=== PATIENT | female | born 1970 | race Caucasian/White ===

== ENCOUNTER → 2017-09-21 | Outpatient (CLI) | payer OTHER ==
[2017-09-21 14:06] LABS: BASOPHILS % (AUTO) 1.1 % (0.0-2.0); EOSINOPHILS % (AUTO) 0.6 % (1.0-6.0); HEMATOCRIT 27.7 % (36-46); HEMOGLOBIN 8.4 g/dL (12.0-16.0); LYMPHOCYTES # (AUTO) 1.5 K/uL (1.0-4.8); LYMPHOCYTES % (AUTO) 32.5 % (22.0-44.0); MEAN CORPUSCULAR HEMOGLOBIN 20.1 pg (26.0-34.0); MEAN CORPUSCULAR HGB CONC 30.3 G/dL (31.0-37.0); MEAN CORPUSCULAR VOLUME 66 fL (80-100); MONOCYTES # (AUTO) 0.3 K/uL (0.1-1.0); MONOCYTES % (AUTO) 7.3 % (2.0-9.0); NEUTROPHILS # (AUTO) 2.7 K/uL (1.8-7.7); NEUTROPHILS % (AUTO) 58.5 % (40.0-70.0); PLATELET COUNT (AUTO) 531 K/uL (150-450); RED BLOOD CELL COUNT(AUTO) 4.19 MIL/uL (4.00-5.20); RED CELL DISTRIBUTION WIDTH 17.1 % (11.5-14.5)
[2017-09-21 14:20] LABS: HEMOGLOBIN A1C 5.2 % (4.5-6.2)
[2017-09-21 14:24] LABS: % IRON SATURATION 2.3 % (22-44); IRON, SERUM 13 mcg/dL (50-175); TOTAL IRON BINDING CAPACITY 551 mcg/dL (250-450)
[2017-09-21 14:38] LABS: ALANINE AMINOTRANSFERASE 20 U/L (12-78); ALKALINE PHOSPHATASE 45 U/L (46-116); ANION GAP 11 mmol/L (8-16); ASPARTATE AMINOTRANSFERASE 27 U/L (15-37); BILIRUBIN,TOTAL 0.2 mg/dL (0.1-1.0); CALCIUM, TOTAL 8.8 mg/dL (8.8-10.5); CARBON DIOXIDE 25 mmol/L (22-29); CHLORIDE 105 mmol/L (98-107); CHOL/HDL RATIO 2.9 (3.9-5.7); CHOLESTEROL 216 mg/dL (131-200); CREATININE 0.55 mg/dL (0.60-1.30); FERRITIN 3 ng/mL (8-252); GLOMERULAR FILTR. RATE CALC > 60 mL/min (>60); GLUCOSE,RANDOM 88 mg/dL (70-110); HDL CHOLESTEROL 74 mg/dL (40-60); LDL CHOL (CALC.) 125 mg/dL (0-130); POTASSIUM 4.3 mmol/L (3.5-5.1); SODIUM SERUM 141 mmol/L (136-145); THYROID STIMULATING HORMONE 1.91 uIU/mL (0.36-3.74); TRIGLYCERIDES 83 mg/dL (15-150); UREA NITROGEN, BLOOD 7 mg/dL (7-18)
== END | disposition home or self-care (01) ==
LOC: LABPV 10:11
PROVIDERS: ATTEND Internal Medicine
DX: D64.9 Anemia, unspecified (principal); E55.9 Vitamin D deficiency, unspecified; Z79.899 Other long term (current) drug therapy
CPT/HCPCS: 82306; 82728; 83036; 83540; 83550; 84443

== ENCOUNTER → 2018-08-22 | Outpatient (CLI) | payer OTHER ==
[2018-08-22 13:07] LABS: BASOPHILS % (AUTO) 1.6 % (0.0-2.0); EOSINOPHILS % (AUTO) 1.2 % (1.0-6.0); HEMOGLOBIN 8.2 g/dL (12.0-16.0); LYMPHOCYTES # (AUTO) 1.7 K/uL (1.0-4.8); MEAN CORPUSCULAR HGB CONC 29.4 G/dL (31.0-37.0); MEAN CORPUSCULAR VOLUME 65 fL (80-100); MONOCYTES # (AUTO) 0.3 K/uL (0.1-1.0); MONOCYTES % (AUTO) 6.7 % (2.0-9.0); NEUTROPHILS # (AUTO) 2.8 K/uL (1.8-7.7); NEUTROPHILS % (AUTO) 55.5 % (40.0-70.0); PLATELET COUNT (AUTO) 497 K/uL (150-450); RED BLOOD CELL COUNT(AUTO) 4.33 MIL/uL (4.00-5.20); RED CELL DISTRIBUTION WIDTH 17.6 % (11.5-14.5)
[2018-08-22 13:09] LABS: HEMATOCRIT 26.8 % (36-46)
[2018-08-22 13:34] LABS: ERYTHROCYTE SEDIMENTATION RATE 12 MM/HR (0-20)
[2018-08-22 16:12] LABS: ALANINE AMINOTRANSFERASE 28 U/L (12-78); ALBUMIN 3.9 g/dL (3.4-5.0); ALKALINE PHOSPHATASE 46 U/L (46-116); ANION GAP 8 mmol/L (8-16); ASPARTATE AMINOTRANSFERASE 23 U/L (15-37); BILIRUBIN,TOTAL 0.2 mg/dL (0.1-1.0); C-REACTIVE PROTEIN QUANT 0.06 mg/dL (0.00-0.30); CALCIUM, TOTAL 8.8 mg/dL (8.8-10.5); CARBON DIOXIDE 26 mmol/L (22-29); CHLORIDE 105 mmol/L (98-107); CHOLESTEROL 236 mg/dL (131-200); CREATININE 0.59 mg/dL (0.60-1.30); FERRITIN 2 ng/mL (8-252); FREE T4 (FREE THYROXINE) 0.81 ng/dL (0.76-1.46); GLOMERULAR FILTR. RATE CALC > 60 mL/min (>60); GLUCOSE,RANDOM 89 mg/dL (70-110); HDL CHOLESTEROL 78 mg/dL (40-60); LDL CHOL (CALC.) 143 mg/dL (0-130); SODIUM SERUM 139 mmol/L (136-145); THYROID STIMULATING HORMONE 2.27 uIU/mL (0.36-3.74); TOTAL PROTEIN, SERUM 7.8 g/dL (6.4-8.2); TRIGLYCERIDES 73 mg/dL (15-150); UREA NITROGEN, BLOOD 7 mg/dL (7-18)
[2018-08-22 16:31] LABS: % IRON SATURATION 1.8 % (22-44); IRON, SERUM 11 mcg/dL (50-175); TOTAL IRON BINDING CAPACITY 580 mcg/dL (250-450)
== END | disposition home or self-care (01) ==
LOC: MSR 12:32
PROVIDERS: ATTEND Internal Medicine
DX: M25.542 Pain in joints of left hand (principal); N91.5 Oligomenorrhea, unspecified
CPT/HCPCS: 82728; 83540; 83550; 84439; 84443; 85651; 86038; 86140; 86162; 86200; 86225; 86430

== ENCOUNTER → 2018-09-04 | Outpatient (CLI) | payer OTHER ==
[2018-09-04 14:16] LABS: APPEARANCE,URINE CLEAR (CLEAR); BILIRUBIN,URINE NEGATIVE (NEGATIVE); GLUCOSE, URINE (UA) NEGATIVE (NEGATIVE); KETONES,URINE NEGATIVE (NEGATIVE); LEUKOCYTE ESTERASE ,URINE TRACE (NEGATIVE); NITRATE,URINE NEGATIVE (NEGATIVE); OCCULT BLOOD,URINE NEGATIVE (NEGATIVE); PROTEIN,URINE NEGATIVE (NEGATIVE); UROBILINOGEN,URINE 0.2 mg/dL (<=1.0)
[2018-09-04 14:55] LABS: BACTERIA,URINE None Seen /HPF (None Seen); RBC,URINE None Seen /HPF (0-2); SQUAMOUS EPITHELIAL CELL,UR Few /LPF (None Seen); WBC,URINE 0-2 /HPF (0-5)
== END | disposition home or self-care (01) ==
LOC: RADPV 13:38
PROVIDERS: ATTEND Internal Medicine
DX: D25.9 Leiomyoma of uterus, unspecified (principal); M25.542 Pain in joints of left hand; D72.829 Elevated white blood cell count, unspecified
CPT/HCPCS: 76830; 76856

== ENCOUNTER 2019-01-25 06:51 | Day surgery (SDC) | payer OTHER ==
[2019-01-24 09:17] LABS: BASOPHILS % (AUTO) 1.2 % (0.0-2.0); EOSINOPHILS % (AUTO) 1.1 % (1.0-6.0); HEMATOCRIT 36.1 % (36-46); HEMOGLOBIN 11.6 g/dL (12.0-16.0); LYMPHOCYTES # (AUTO) 1.6 K/uL (1.0-4.8); LYMPHOCYTES % (AUTO) 35.9 % (22.0-44.0); MEAN CORPUSCULAR HEMOGLOBIN 30.3 pg (26.0-34.0); MEAN CORPUSCULAR HGB CONC 32.1 G/dL (31.0-37.0); MEAN CORPUSCULAR VOLUME 94 fL (80-100); MONOCYTES # (AUTO) 0.4 K/uL (0.1-1.0); MONOCYTES % (AUTO) 8.1 % (2.0-9.0); NEUTROPHILS # (AUTO) 2.5 K/uL (1.8-7.7); NEUTROPHILS % (AUTO) 53.7 % (40.0-70.0); PLATELET COUNT (AUTO) 416 K/uL (150-450); RED BLOOD CELL COUNT(AUTO) 3.83 MIL/uL (4.00-5.20); RED CELL DISTRIBUTION WIDTH 12.6 % (11.5-14.5)
[2019-01-24 09:37] LABS: APPEARANCE,URINE CLEAR (CLEAR); BILIRUBIN,URINE NEGATIVE (NEGATIVE); GLUCOSE, URINE (UA) NEGATIVE (NEGATIVE); KETONES,URINE NEGATIVE (NEGATIVE); LEUKOCYTE ESTERASE ,URINE NEGATIVE (NEGATIVE); NITRATE,URINE NEGATIVE (NEGATIVE); OCCULT BLOOD,URINE NEGATIVE (NEGATIVE); PROTEIN,URINE NEGATIVE (NEGATIVE); UROBILINOGEN,URINE 0.2 mg/dL (<=1.0)
[2019-01-24 10:56] LABS: ALBUMIN 3.7 g/dL (3.4-5.0); BILIRUBIN,TOTAL 0.3 mg/dL (0.1-1.0); CALCIUM, TOTAL 9.4 mg/dL (8.8-10.5); POTASSIUM 3.8 mmol/L (3.5-5.1); TOTAL PROTEIN, SERUM 7.5 g/dL (6.4-8.2)
[~2019-01-25] VITALS: Ht 160 cm; Wt 57.3 kg
[~2019-01-25 06:51] MED LIST: IRON-24 PO; RINGERS SOLUTION,LACTATED 1,000 ML IV ONE
[2019-01-25] MEDS ORDERED: MIDAZOLAM HCL 2 MG/2 ML VIAL IVP ONE (06:52)
[2019-01-25] MEDS ORDERED: LIDOCAINE/PF 2% 5 ML VIAL IM ONE (06:52)
[2019-01-25] MEDS ORDERED: PROPOFOL 1% 20 ML VIAL IVP ONE (06:52)
[2019-01-25] MEDS ORDERED: ONDANSETRON HCL 4 MG/2 ML VIAL IVP ONE (06:52)
[2019-01-25] MEDS ORDERED: FentaNYL CITRATE-PF 100 MCG/2 ML VIAL IVP ONE (06:52)
[2019-01-25] MEDS: RINGERS SOLUTION,LACTATED 1,000 ML IV ONE (07:51)
[2019-01-25] MEDS ORDERED: SODIUM CL IRRIG SOLN BAG 6,000 ML IRRIG ONE ×3 (08:29→10:02)
[2019-01-25] MEDS ORDERED: ONDANSETRON HCL 4 MG/2 ML VIAL IVP PRN (09:45)
[2019-01-25] MEDS ORDERED: HYDROmorphone 2 MG/ML SYRINGE IVP PRN ×2 (09:45)
[2019-01-25] MEDS ORDERED: MEPERIDINE-PF 25 MG/ML VIAL ONE (10:49)
[2019-01-25] MEDS: TRANEXAMIC ACID 1,000 MG in DEXTROSE 5%-WATER 50 ML IV ONE (10:49)
[2019-01-25] MEDS ORDERED: ACETAMINOPHEN 1000 MG/ISO-OSM 100 ML IV ONE (10:50)
[2019-01-25] MEDS: MEPERIDINE-PF 25 MG/ML VIAL IVP PRN (10:53)
[2019-01-25] MEDS: ACETAMINOPHEN 1000 MG/ISO-OSM 100 ML IV ONE (10:54)
[2019-01-25] MEDS: IBUPROFEN 600 MG TABLET PO ONE (12:41)
== END 2019-01-25 13:00 | disposition home or self-care (01) ==
LOC: SURGERY 06:51
PROVIDERS: ATTEND Obstetrics & Gynecology
DX: D25.0 Submucous leiomyoma of uterus (principal); N84.0 Polyp of corpus uteri; D64.9 Anemia, unspecified; Z98.890 Other specified postprocedural states
CPT/HCPCS: 36415; 58561; 80053; 81003; 84703; 85025; 88305; 88342; J0131; J2175; J2250; J2405; J2704; J3010; J3490 ×2; J7060; J7120; 88321; 88341

== ENCOUNTER 2019-05-10 07:30 | Inpatient (IN) | payer OTHER ==
[~2019-05-10] VITALS: Ht 162.6 cm; Wt 56.8 kg
[~2019-05-10 07:30] MED LIST changes: -RINGERS SOLUTION,LACTATED 1,000 ML IV ONE
[2019-05-13] MEDS ORDERED: BUPIVACAINE LIPOSOME/PF 1.3%-13.3MG/ML SUSPENSION 20 ML VIAL INJ ONE (09:45)
[2019-05-14] MEDS ORDERED: RINGERS SOLUTION,LACTATED 1,000 ML IV ONE ×4 (08:23→13:15)
[2019-05-14] MEDS ORDERED: BUPIVACAINE LIPOSOME/PF 1.3%-13.3MG/ML SUSPENSION 20 ML VIAL INJ ONE (09:00)
[2019-05-14 09:51] LABS: BASOPHILS % (AUTO) 1.2 % (0.0-2.0); EOSINOPHILS % (AUTO) 0.5 % (1.0-6.0); HEMATOCRIT 35.6 % (36-46); HEMOGLOBIN 11.1 g/dL (12.0-16.0); LYMPHOCYTES # (AUTO) 1.7 K/uL (1.0-4.8); LYMPHOCYTES % (AUTO) 27.7 % (22.0-44.0); MEAN CORPUSCULAR HEMOGLOBIN 25.5 pg (26.0-34.0); MEAN CORPUSCULAR HGB CONC 31.3 G/dL (31.0-37.0); MEAN CORPUSCULAR VOLUME 82 fL (80-100); MONOCYTES # (AUTO) 0.4 K/uL (0.1-1.0); MONOCYTES % (AUTO) 6.5 % (2.0-9.0); NEUTROPHILS % (AUTO) 64.1 % (40.0-70.0); PLATELET COUNT (AUTO) 487 K/uL (150-450); RED BLOOD CELL COUNT(AUTO) 4.37 MIL/uL (4.00-5.20); RED CELL DISTRIBUTION WIDTH 15.1 % (11.5-14.5)
[2019-05-14 09:59] LABS: ANION GAP 9 mmol/L (8-16); CALCIUM, TOTAL 8.5 mg/dL (8.8-10.5); CARBON DIOXIDE 27 mmol/L (22-29); CHLORIDE 104 mmol/L (98-107); CREATININE 0.73 mg/dL (0.60-1.30); GLOMERULAR FILTR. RATE CALC > 60 mL/min (>60); GLUCOSE,RANDOM 84 mg/dL (70-110); POTASSIUM 3.7 mmol/L (3.5-5.1); SODIUM SERUM 140 mmol/L (136-145); UREA NITROGEN, BLOOD 7 mg/dL (7-18)
[2019-05-14] MEDS ORDERED: TRANEXAMIC ACID 1,000 MG in DEXTROSE 5%-WATER 50 ML IV ONE (10:00)
[2019-05-14 10:05] LABS: ALANINE AMINOTRANSFERASE 17 U/L (12-78); ALKALINE PHOSPHATASE 53 U/L (46-116); ASPARTATE AMINOTRANSFERASE 26 U/L (15-37); BILIRUBIN,TOTAL 0.4 mg/dL (0.1-1.0); TOTAL PROTEIN, SERUM 8.1 g/dL (6.4-8.2)
[2019-05-14] MEDS ORDERED: BUPIVACAINE HCL/PF 0.25% 30 ML VIAL ONE (10:23)
[2019-05-14] MEDS ORDERED: SODIUM CL IRRIG SOLN BAG 3,000 ML IRRIG ONE (10:24)
[2019-05-14 10:36] LABS: APPEARANCE,URINE CLEAR (CLEAR); BILIRUBIN,URINE NEGATIVE (NEGATIVE); GLUCOSE, URINE (UA) NEGATIVE (NEGATIVE); KETONES,URINE 15 mg/dL (NEGATIVE); LEUKOCYTE ESTERASE ,URINE NEGATIVE (NEGATIVE); NITRATE,URINE NEGATIVE (NEGATIVE); OCCULT BLOOD,URINE NEGATIVE (NEGATIVE); PH,URINE 6.5 (5.0-8.0); PROTEIN,URINE NEGATIVE (NEGATIVE); UROBILINOGEN,URINE 0.2 mg/dL (<=1.0)
[2019-05-14] MEDS ORDERED: CefoTEtan DISOD 2 GM/DEXTROSE 50 ML IV ONE (11:16)
[2019-05-14] MEDS ORDERED: FentaNYL CITRATE-PF 100 MCG/2 ML VIAL IVP ONE (12:00)
[2019-05-14] MEDS ORDERED: LIDOCAINE/PF 2% 5 ML VIAL INJ ONE (12:00)
[2019-05-14] MEDS ORDERED: HYDROmorphone 2 MG/ML SYRINGE IVP ONE (12:00)
[2019-05-14] MEDS ORDERED: MIDAZOLAM HCL 2 MG/2 ML VIAL IVP ONE (12:00)
[2019-05-14] MEDS ORDERED: ROCURONIUM BROMIDE 10 MG/ML 5 ML VIAL IVP ONE (12:00)
[2019-05-14] MEDS ORDERED: DEXAMETHASONE SOD PHOS 4 MG/ML VIAL IVP ONE (12:00)
[2019-05-14] MEDS ORDERED: GLYCOPYRROLATE 0.2 MG/ML VIAL IM ONE (12:00)
[2019-05-14] MEDS ORDERED: ONDANSETRON HCL 4 MG/2 ML VIAL IVP ONE (12:00)
[2019-05-14] MEDS ORDERED: BUPIVACAINE LIPOSOME/PF 1.3%-13.3MG/ML SUSPENSION 10 ML VIAL INJ ONE (12:15)
[2019-05-14] MEDS ORDERED: WATER FOR IRRIGATION,STERILE 3,000 ML IRRIG ONE (13:50)
[2019-05-14] MEDS ORDERED: METHYLENE BLUE 0.5% 10 ML AMPULE IVP ONE (15:15)
[2019-05-14] MEDS ORDERED: OxyCODONE HCL/ACETAMINOPHEN 5-325 MG TABLET PO PRN (16:15)
[2019-05-14] MEDS ORDERED: ACETAMINOPHEN 1000 MG/ISO-OSM 100 ML IV STA (16:36)
[2019-05-14 17:23] VITALS: BP 115/68
[2019-05-14] MEDS ORDERED: INFLUENZA VIRUS VACCINE QVS 2019-20 (3YR+)/PF 60 MCG/0.5 ML SYRINGE IM ONE (18:30)
[2019-05-14] MEDS: KETOROLAC TROMETHAMINE 15 MG/ML VIAL IVP SCH (18:47)
[2019-05-14 20:00] VITALS: BP 118/69
[2019-05-14] MEDS: OxyCODONE HCL/ACETAMINOPHEN 5-325 MG TABLET PO PRN (22:57)
[2019-05-14 23:00] VITALS: BP 117/72
[2019-05-14 23:53] VITALS: BP 113/68
[2019-05-15] MEDS: KETOROLAC TROMETHAMINE 15 MG/ML VIAL IVP SCH ×3 (00:40→11:45)
[2019-05-15] MEDS: RINGERS SOLUTION,LACTATED 1,000 ML IV SCH ×2 (02:35→11:45)
[2019-05-15 05:38] VITALS: BP 100/63
[2019-05-15 08:11] VITALS: BP 140/70
[2019-05-15] MEDS ORDERED: IBUP-2070 PO (12:30)
[2019-05-15] MEDS ORDERED: PERCT PO (12:30)
[2019-05-15] MEDS: OxyCODONE HCL/ACETAMINOPHEN 5-325 MG TABLET PO PRN (12:51)
== END 2019-05-15 14:00 | disposition home or self-care (01) | DRG 743 ==
LOC: 4S 05-14 09:13 → 4E 05-14 09:14
PROVIDERS: ADMIT Obstetrics & Gynecology; ATTEND Obstetrics & Gynecology
PROC: 0UT74ZZ Resection of Bilateral Fallopian Tubes, Percutaneous Endoscopic Approach (ICD-10-PCS; 2019-05-14)
PROC: 0UT94ZZ Resection of Uterus, Percutaneous Endoscopic Approach (ICD-10-PCS; principal; 2019-05-14 11:00)
DX: N85.02 Endometrial intraepithelial neoplasia [EIN] (principal); D25.9 Leiomyoma of uterus, unspecified; D50.0 Iron deficiency anemia secondary to blood loss (chronic); N92.1 Excessive and frequent menstruation with irregular cycle; Z28.21 Immunization not carried out because of patient refusal; Z80.41 Family history of malignant neoplasm of ovary; Z98.891 History of uterine scar from previous surgery
CPT/HCPCS: 87081; 88302; 88307; C9290; G0238; G0378; J0131; J1100; J1170; J1885; J2250; J2405; J3010; J3490; J7060; J7120

== ENCOUNTER → 2020-11-02 | Outpatient (CLI) | payer OTHER ==
[~2020-11-02] MED LIST changes: +IBUP-2070 PO; +PERCT PO
[2020-11-02 12:45] LABS: BASOPHILS % (AUTO) 0.8 % (0.0-2.0); EOSINOPHILS % (AUTO) 0.7 % (1.0-6.0); HEMATOCRIT 41.8 % (36-46); HEMOGLOBIN 13.7 g/dL (12.0-16.0); MEAN CORPUSCULAR HEMOGLOBIN 29.8 pg (26.0-34.0); MEAN CORPUSCULAR HGB CONC 32.7 G/dL (31.0-37.0); MEAN CORPUSCULAR VOLUME 91 fL (80-100); MONOCYTES # (AUTO) 0.3 K/uL (0.1-1.0); NEUTROPHILS # (AUTO) 2.7 K/uL (1.8-7.7); NEUTROPHILS % (AUTO) 52.5 % (40.0-70.0); PLATELET COUNT (AUTO) 394 K/uL (150-450); RED BLOOD CELL COUNT(AUTO) 4.59 MIL/uL (4.00-5.20); RED CELL DISTRIBUTION WIDTH 12.6 % (11.5-14.5)
[2020-11-02 13:20] LABS: ALANINE AMINOTRANSFERASE 20 U/L (12-78); ALBUMIN 4.1 g/dL (3.4-5.0); ALKALINE PHOSPHATASE 81 U/L (46-116); ANION GAP 10 mmol/L (8-16); ASPARTATE AMINOTRANSFERASE 19 U/L (15-37); BILIRUBIN,TOTAL 0.3 mg/dL (0.1-1.0); CALCIUM, TOTAL 9.5 mg/dL (8.8-10.5); CARBON DIOXIDE 28 mmol/L (22-29); CHLORIDE 102 mmol/L (98-107); CHOL/HDL RATIO 3.4 (3.9-5.7); CHOLESTEROL 232 mg/dL (131-200); CREATININE 0.76 mg/dL (0.60-1.30); GLOMERULAR FILTR. RATE CALC > 60 mL/min (>60); GLUCOSE,RANDOM 97 mg/dL (70-110); HDL CHOLESTEROL 69 mg/dL (40-60); LDL CHOL (CALC.) 147 mg/dL (0-130); POTASSIUM 4.2 mmol/L (3.5-5.1); SODIUM SERUM 140 mmol/L (136-145); TOTAL PROTEIN, SERUM 7.6 g/dL (6.4-8.2); TRIGLYCERIDES 80 mg/dL (15-150); UREA NITROGEN, BLOOD 11 mg/dL (7-18)
== END | disposition home or self-care (01) ==
LOC: LABPV 11:19
PROVIDERS: ATTEND Internal Medicine
DX: E78.00 Pure hypercholesterolemia, unspecified (principal); D64.9 Anemia, unspecified
CPT/HCPCS: 80053; 80061; 85025

== ENCOUNTER → 2020-12-09 | Outpatient (CLI) | payer OTHER | END | disposition home or self-care (01) | LOC: RADMN 09:10 | PROVIDERS: ATTEND Internal Medicine | DX: Z03.89 Encounter for observation for other suspected diseases and conditions ruled out (principal); Z90.710 Acquired absence of both cervix and uterus; Z80.41 Family history of malignant neoplasm of ovary | CPT/HCPCS: 76856 ==

== ENCOUNTER 2021-03-23 11:17 | Day surgery (SDC) | payer OTHER ==
[2021-03-22 11:40] LABS: COVID AG,FIA SOURCE NASOPHARYNGEAL
[~2021-03-23] VITALS: Ht 160 cm; Wt 56.8 kg
[~2021-03-23 11:17] MED LIST changes: +SODIUM CHLORIDE 0.9% 1,000 ML IV ONE; +SODIUM CHLORIDE 0.9% 1,000 ML ONE
[2021-03-23] MEDS ORDERED: LIDOCAINE/PF 2% 5 ML SYRINGE IVP ONE (11:18)
[2021-03-23] MEDS ORDERED: PROPOFOL 1% 20 ML VIAL IVP ONE (11:18)
[2021-03-23] MEDS ORDERED: OXYGEN THERAPY IH SCH (20:00)
== END 2021-03-23 14:40 | disposition home or self-care (01) ==
LOC: SURGERY 11:17
PROVIDERS: ATTEND Specialist
DX: Z12.11 Encounter for screening for malignant neoplasm of colon (principal); K63.5 Polyp of colon; I10 Essential (primary) hypertension; Z90.710 Acquired absence of both cervix and uterus; Z98.890 Other specified postprocedural states; Z79.899 Other long term (current) drug therapy
CPT/HCPCS: 45378; 87426; 88305; C1769; C9803; J2704; J3490; J7030

== ENCOUNTER → 2021-04-07 | Outpatient (CLI) | payer OTHER ==
[~2021-04-07] MED LIST changes: -SODIUM CHLORIDE 0.9% 1,000 ML IV ONE; -SODIUM CHLORIDE 0.9% 1,000 ML ONE
[2021-04-07 13:17] LABS: CHOL/HDL RATIO 2.9 (3.9-5.7)
[2021-04-07 16:06] LABS: FREE THYROXINE INDEX 1.9 (1.4-4.5)
== END | disposition home or self-care (01) ==
LOC: LABPV 11:11
PROVIDERS: ATTEND Internal Medicine
DX: E78.5 Hyperlipidemia, unspecified (principal); Z79.899 Other long term (current) drug therapy
CPT/HCPCS: 80061; 82306; 84436; 84443; 84479

== ENCOUNTER → 2021-12-07 | Outpatient (CLI) | payer OTHER ==
[2021-12-07 10:51] LABS: BASOPHILS % (AUTO) 0.7 % (0.0-2.0); EOSINOPHILS % (AUTO) 0.7 % (1.0-6.0); HEMATOCRIT 38.8 % (36-46); HEMOGLOBIN 13.3 g/dL (12.0-16.0); LYMPHOCYTES # (AUTO) 1.5 K/uL (1.0-4.8); LYMPHOCYTES % (AUTO) 38.9 % (22.0-44.0); MEAN CORPUSCULAR HEMOGLOBIN 30.4 pg (26.0-34.0); MEAN CORPUSCULAR HGB CONC 34.3 G/dL (31.0-37.0); MEAN CORPUSCULAR VOLUME 89 fL (80-100); MONOCYTES # (AUTO) 0.3 K/uL (0.1-1.0); MONOCYTES % (AUTO) 7.4 % (2.0-9.0); NEUTROPHILS # (AUTO) 2.1 K/uL (1.8-7.7); NEUTROPHILS % (AUTO) 52.3 % (40.0-70.0); PLATELET COUNT (AUTO) 352 K/uL (150-450); RED BLOOD CELL COUNT(AUTO) 4.38 MIL/uL (4.00-5.20)
[2021-12-07 10:59] LABS: HEMOGLOBIN A1C 5.5 % (3.8-5.6)
[2021-12-07 11:20] LABS: ALANINE AMINOTRANSFERASE 25 U/L (12-78); ALBUMIN 3.9 g/dL (3.4-5.0); ALKALINE PHOSPHATASE 78 U/L (46-116); ANION GAP 10 mmol/L (8-16); ASPARTATE AMINOTRANSFERASE 19 U/L (15-37); BILIRUBIN,TOTAL 0.4 mg/dL (0.1-1.0); CALCIUM, TOTAL 9.4 mg/dL (8.8-10.5); CARBON DIOXIDE 29 mmol/L (22-29); CHLORIDE 103 mmol/L (98-107); CHOL/HDL RATIO 3.2 (3.9-5.7); CHOLESTEROL 239 mg/dL (131-200); CREATININE 0.77 mg/dL (0.60-1.30); GLOMERULAR FILTR. RATE CALC > 60 mL/min (>60); GLUCOSE,RANDOM 106 mg/dL (70-110); HDL CHOLESTEROL 75 mg/dL (40-60); LDL CHOL (CALC.) 132 mg/dL (0-130); SODIUM SERUM 142 mmol/L (136-145); TOTAL PROTEIN, SERUM 7.8 g/dL (6.4-8.2); TRIGLYCERIDES 162 mg/dL (15-150); UREA NITROGEN, BLOOD 9 mg/dL (7-18)
== END | disposition home or self-care (01) ==
LOC: LABMN 10:22
PROVIDERS: ATTEND Internal Medicine
DX: E78.5 Hyperlipidemia, unspecified (principal); N91.5 Oligomenorrhea, unspecified; D72.829 Elevated white blood cell count, unspecified; E55.9 Vitamin D deficiency, unspecified
CPT/HCPCS: 80053; 80061; 82306; 83036; 85025

== ENCOUNTER → 2022-03-04 | Outpatient (CLI) | payer OTHER ==
[2022-03-04 11:15] LABS: BASOPHILS % (AUTO) 0.7 % (0.0-2.0); EOSINOPHILS % (AUTO) 0.7 % (1.0-6.0); HEMATOCRIT 39.8 % (36-46); HEMOGLOBIN 13.4 g/dL (12.0-16.0); LYMPHOCYTES # (AUTO) 2.3 K/uL (1.0-4.8); LYMPHOCYTES % (AUTO) 47.6 % (22.0-44.0); MEAN CORPUSCULAR HEMOGLOBIN 30.2 pg (26.0-34.0); MEAN CORPUSCULAR HGB CONC 33.7 G/dL (31.0-37.0); MEAN CORPUSCULAR VOLUME 89 fL (80-100); MONOCYTES # (AUTO) 0.3 K/uL (0.1-1.0); NEUTROPHILS # (AUTO) 2.2 K/uL (1.8-7.7); PLATELET COUNT (AUTO) 374 K/uL (150-450); RED BLOOD CELL COUNT(AUTO) 4.45 MIL/uL (4.00-5.20); RED CELL DISTRIBUTION WIDTH 12.6 % (11.5-14.5)
== END | disposition home or self-care (01) ==
LOC: LABMN 11:02
PROVIDERS: ATTEND Internal Medicine
DX: D72.819 Decreased white blood cell count, unspecified (principal)
CPT/HCPCS: 85025

== ENCOUNTER → 2023-09-26 | Outpatient (CLI) | payer OTHER ==
[~2023-09-26] MED LIST changes: +IBUP-1492 PO; -IBUP-2070 PO
[2023-09-26 08:12] LABS: BASOPHILS % (AUTO) 1.1 % (0.0-2.0); EOSINOPHILS % (AUTO) 0.9 % (1.0-6.0); HEMATOCRIT 39.1 % (36-46); HEMOGLOBIN 13.1 g/dL (12.0-16.0); LYMPHOCYTES # (AUTO) 1.9 K/uL (1.0-4.8); LYMPHOCYTES % (AUTO) 42.8 % (22.0-44.0); MEAN CORPUSCULAR HEMOGLOBIN 30.5 pg (26.0-34.0); MEAN CORPUSCULAR HGB CONC 33.5 G/dL (31.0-37.0); MEAN CORPUSCULAR VOLUME 91 fL (80-100); MONOCYTES # (AUTO) 0.3 K/uL (0.1-1.0); MONOCYTES % (AUTO) 6.8 % (2.0-9.0); NEUTROPHILS # (AUTO) 2.2 K/uL (1.8-7.7); NEUTROPHILS % (AUTO) 48.4 % (40.0-70.0); PLATELET COUNT (AUTO) 343 K/uL (150-450); RED BLOOD CELL COUNT(AUTO) 4.29 MIL/uL (4.00-5.20); RED CELL DISTRIBUTION WIDTH 13.1 % (11.5-14.5); WHITE BLOOD COUNT (AUTO) 4.5 K/uL (4.5-11.0)
[2023-09-26 08:27] LABS: ALANINE AMINOTRANSFERASE 18 U/L (12-78); ALBUMIN 3.5 g/dL (3.4-5.0); ALKALINE PHOSPHATASE 77 U/L (46-116); ANION GAP 7 mmol/L (8-16); ASPARTATE AMINOTRANSFERASE 18 U/L (15-37); BILIRUBIN,TOTAL 0.3 mg/dL (0.1-1.0); CALCIUM, TOTAL 8.5 mg/dL (8.8-10.5); CARBON DIOXIDE 28 mmol/L (22-29); CHLORIDE 104 mmol/L (98-107); CHOL/HDL RATIO 2.8 (3.9-5.7); CHOLESTEROL 221 mg/dL (131-200); GLOMERULAR FILTR. RATE CALC > 60 mL/min (>60); GLUCOSE,RANDOM 93 mg/dL (70-110); HDL CHOLESTEROL 78 mg/dL (40-60); LDL CHOL (CALC.) 129 mg/dL (0-130); POTASSIUM 4.1 mmol/L (3.5-5.1); SODIUM SERUM 139 mmol/L (136-145); TOTAL PROTEIN, SERUM 7.3 g/dL (6.4-8.2); TRIGLYCERIDES 70 mg/dL (15-150); UREA NITROGEN, BLOOD 9 mg/dL (7-18)
== END | disposition home or self-care (01) ==
LOC: LABMN 07:52
PROVIDERS: ATTEND Nurse Practitioner
DX: Z13.9 Encounter for screening, unspecified (principal); E55.9 Vitamin D deficiency, unspecified
CPT/HCPCS: 80053; 80061; 82306; 85025